=== PATIENT | male | born 1985 | race Hispanic/Latino ===

== ENCOUNTER 2021-11-05 11:44 | Emergency (ER) | payer SELFPAY ==
--- OUTSIDE RECORDS SUMMARY | 2021-11-05 11:47 | XMS REPORT | Continuity of Care Document ---
:1985 Author Organization [facility] t Address [address] [address] Care Team Providers Name Role Phone PCP, DOES NOT HAVE A Primary Care Physician Unavailable Tammy ZAMORA Attending Clinician Unavailable Noah PAC, S Attending Clinician JAN GREENWOOD Attending Clinician Unavailable Otto DOMeera Attending Clinician Lab, Fam Pob I Attending Clinician Unavailable Kierra MOLINA Attending Clinician KIERRA Attending Clinician Unavailable Tammy ZAMORA Admitting Clinician Unavailable Payers Payer Name Policy Type Policy Number Effective Date Expiration Date S [facility] - [id number] 2020 00:00:00 OUT OF STATE Problems Condition Condition Condition Status Onset Resolution Last Treating Co mments Source Name Details Category Date Date Treatment Clinician Date No known No known Disease Unive rs active active ity of problems problems [facility] Allergies, Adverse Reactions, Alerts Allergy Allergy Status Severity Reaction(s) Onset Inactive Treating Comm ents Source Name Type Date Date Clinician NO KNOWN Drug Active Univers ALLERGIE Class ity of S [facility] Social History Social Habit Start Date Stop Date Quantity Comments Source Exposure to Not sure [facility] SARS-CoV-2 (event) Medica l Branch Sex Assigned At [birth year] [facility] 00:00:00 00:00:00 Medical Branch Smoking Status Start Date Stop Date Source Unknown if ever smoked [facility] Medications Ordered Filled Start Stop Current Ordering Indication Dosage Frequency Signature Comments Components Source Medication Medication Date Date Medication? Clinician (SIG) Name Name HYDROcodone 2020-11- No 1{tbl} 1 tablet, Univers -acetaminop 11-09 Oral, ity of hen (NORCO 03:15: 02:09 ONCE, 1 [place] 5) 5-325 mg 00 :00 dose, On Medi terri tablet 1 [place] tablet 09/08/21 at 2115, PATRICIA iohexol 2020-11- No [id number] 100mL 100 mL, U nivers (OMNIPAQUE 11-09 Intravenou it y of 350 02:45: 02:31 s, ONCE, 1 [place] BULK-100 00 :00 dose, On Medical mL) [place] injection 09/08/21 at 100 mL 2045, Routine ondansetron 2020-11 Yes [id number] 4mg Take 1 Univers (ZOFRAN 1-07 tablet by ity of ODT) 4 mg 00:00: mouth [place] disintegrat 00 every 8 Medic al ing tablet (eight) Branch hours as needed for Nausea and Vomiting (N/V). clindamycin 2020-11- Yes [id number] 450mg Take 3 Univers 150 mg 11-0818 capsules ity of capsule 00:00: 05:59 by mouth 3 [place] 00 :00 (three) Medical times Branch daily for 10 days. cyclobenzap Yes [id number] 10mg Take 1 Univers rine 10 mg 5-23 tablet by ity of tablet 00:00: mouth 3 [place] 00 (three) Medical times Branch daily as needed for Muscle Spasms. cyclobenzap Yes [id number] 10mg Take 1 Univers rine 10 mg 5-23 tablet by ity of tablet 00:00: mouth 3 [place] 00 (three) Medical times Branch daily as needed for Muscle Spasms. Vital Signs Vital Name Observation Time Observation Value Comments Source Systolic blood 2021-09-09 00:39:00 137 mm[Hg] Univer sity of pressure [facility] Diastolic blood 2021-09-09 00:39:00 92 mm[Hg] Unive rsity of [facility] Heart rate 2021-09-09 00:39:00 111 /min [facility] [place] [facility] [place] Body temperature 2021-09-09 00:39:00 37.33 [facility] Respiratory rate 2021-09-09 00:39:00 19 /min [facility] Body height 2021-09-09 00:39:00 180.3 cm Universi ty of [facility] Body weight 2021-09-09 00:39:00 77.111 kg Universi ty [facility] BMI 2021-09-09 00:39:00 23.71 kg/m2 Universi ty [facility] Oxygen saturation in 2021-09-09 00:39:00 99 /min [place] of Arterial blood by [facility] Pulse oximetry [place] Systolic blood 2021-03-24 14:02:00 167 mm[Hg] [facility] Diastolic blood 2021-03-24 14:02:00 107 mm[Hg] [facility] Heart rate 2021-03-24 14:02:00 86 /min [facility] Body temperature 2021-03-24 14:02:00 36.06 [facility] Respiratory rate 2021-03-24 14:02:00 18 /min [facility] Body weight 2021-03-24 14:02:00 90.719 kg Universi ty [facility] Oxygen saturation in 2021-03-24 14:02:00 99 /min [facility] Arterial blood by [facility] Pulse oximetry [place] Procedures Procedure Date / Time Performed Performing Clinician [facility] e CT PELVIS W CONTRAST 2021-09-09 02:35:15 Elizabeth Zamora [facility] BASIC METABOLIC PANEL 2021-09-09 02:02:00 Elizabeth Zamora [facility] (NA, K, CL, CO2, Medical Branch GLUCOSE, BUN, CREATININE, CA) CBC WITH DIFF 2021-09-09 02:02:00 Elizabeth Zamora [place] o f [facility] COVID-19 (ID NOW RAPID 2021-09-09 01:13:00 Elizabeth Zamora [facility] TESTING) Medical Branch URINALYSIS 2021-03-24 14:07:00 Brittnee Menjivar Universit y of [facility] NOTICE OF PRIVACY 2021-03-24 14:02:48 Doctor Unassigned, No Univ ersity [facility] PRACTICES Name [facility] Branch CONSENT/REFUSAL FOR 2021-03-24 13:57:47 Doctor Unassigned, No [facility] AND Name [facility] TREATMENT Encounters Start End Encounter Admission Attending Care Care Encounter Source Date/Time Date/Time Type Type Clinicians Facility Department ID 2021-09-01 Emergency [facility] [id number] Univers 20:43:43 ity [facility] 2021-09-08 2021-09-08 [id number] Univers 18:42:00 21:48:00 ELIZABETH ity [facility] 2021-09-08 2021-09-08 [facility] [id number] Univers 18:42:00 21:48:00 Elizabeth S [place] [id number] i ty [facility] [id number] [facility] [id number] [address] 2021-05-17 2021-05-17 Outpatient MARLEN GREENWOOD [id number] 15:30:00 15:30:00 CHEYANNE shay 2021-03-24 2021-03-24 [facility] [id number] Univers 09:04:00 09:44:00 [id number] [id number] [address] 2020-05-17 2020-05-17 Outpatient R [facility] [id number] Univers 07:20:00 07:20:00 [id number] ity [facility] 2020-05-07 2020-05-07 Laboratory Lab, Adc Fam Pob [facility] [id number] Univers 11:15:29 11:27:08 Only KODA [id number] ity [facility] [id number] [place] Professio [id number] Fl dical nal [address] 2020-05-07 2020-05-07 Outpatient Eber LOZADA [facility] [id number] Univers 11:20:00 11:20:00 RUPALI feliz [facility] Results Test Description Test Time Test Comments Results Result Comments Source BASIC METABOLIC PANEL (NA, K, CL, CO2, GLUCOSE, BUN, 2021-09 02:44:46 CREATININE, CA) Test Item Value Reference Range Interpretation Comme nts NA (test code = 9692783018) 134 mmol/L 135-145 L K (test code = 5892237656) 4.1 mmol/L 3.5-5.0 CL (test code = 8968430934) 99 mmol/L 98-108 CO2 TOTAL (test code = 8654281569) 34 mmol/L 23-31 H AGAP (test code = 8408448027) 2-16 L BUN (test code = 7947310415) 12 mg/dL 7-23 GLUCOSE (test code = 6919988317) 128 mg/dL 70-110 H CREATININE (test code = 0.64 mg/dL 0.60-1.25 2540013063) CALCIUM (test code = 9618593336) 8.9 mg/dL 8.6-10.6 eGFR (test code = 9032940791) mL/min/1.73m2 JUN (test code = JUN) Association of Glomerular Filtration Rate (GFR) and Staging of Kidney Disease* + +-------- + ------+| GFR (mL/min/1.73 m2) ?| With Kidney Damage ?| ?Without Kidney Damage+ +-- + +| ?>90 ?| ?Stage one ?| ? Normal ?+ +------- + -------+| ?60-89 ?| ?Stage two ?| ? Decreased GFR ? + +-------- + ------+| ?30-59 ?| ?Stage three ?| ? Stage three ? + +-------- + ------+| ?15-29 ?| ?Stage four ? | ? Stage four ?+ +------- + -------+| ?<15 (or dialysis) ? ?| ?Stage five ? | ? Stage five ?+ +------- + -------+ *Each stage assumes the associated GFR level has been in effect for at least three months. ?Stages 1 to 5, with or without kidney disease, indicate chronic kidney disease. Notes: Determination of stages one and two (with eGFR >59mL/min/1.73 m2) requires estimation of kidney damage for at least three months as defined by structural or functional abnormalities of the kidney, manifested by either:Pathological abnormalities or Markers of kidney damage (including abnormalities in the composition of the blood or urine or abnormalities in imaging tests). Lab Interpretation (test code = Abnormal 20884-7) [facility] WITH [id number] 02:09:44 Test Item Value Reference Range Interpretation Comments WBC (test code = See_Comment [Automated 8890-2) message] The sy stem which generated this result transmitted reference range : 4.20 - 10.70 10*3/?L. The reference range was not used to interpret this result as normal/abnormal . RBC (test code = See_Comment [Automated 729-8) message] The sy stem which generated this result transmitted reference range : 4.26 - 5.52 10*6/?L. The reference range was not used to interpret this result as normal/abnormal . HGB (test code = 13.1 g/dL 12.2-16.4 718-7) HCT (test code = 40.8 % 38.4-49.3 4544-3) MCV (test code = 88.9 fL 81.7-95.6 787-2) MCH (test code = 28.5 pg 26.1-32.7 785-6) MCHC (test code = 32.1 g/dL 31.2-35.0 786-4) RDW-SD (test code = 43.5 fL 38.5-51.6 37239-0) RDW-CV (test code = 13.3 % 12.1-15.4 788-0) PLT (test code = See_Comment [Automated 777-3) message] The sy stem which generated this result transmitted reference range : 150 - 328 10*3/ ?L. The reference r lucero was not used to interpret this result as normal/abnormal . MPV (test code = 9.6 fL 9.8-13.0 L 27306-7) NRBC/100 WBC (test See_Comment [Automat ed code = 7918820856) message] The system which generated this result transmitted reference range : 0.0 - 10.0 /100 WBCs. The refer ence range was not u sed to interpret th is result as normal/abnormal . NRBC x10^3 (test code <0.01 See_Comment [Auto mated = 2217366671) message] The s ystem which generated this result transmitted reference range : 10*3/?L. The reference range was not used to interpret this result as normal/abnormal . GRAN MAT (NEUT) % 70.6 % (test code = 770-8) IMM GRAN % (test code 0.50 % = 0901381616) LYMPH % (test code = 14.6 % 736-9) MONO % (test code = 12.3 % 5905-5) EOS % (test code = 1.7 % 713-8) BASO % (test code = 0.3 % 706-2) GRAN MAT x10^3(ANC) 7.50 10*3/uL 1.99-6.95 H (test code = 6513308800) IMM GRAN x10^3 (test 0.05 10*3/uL 0.00-0.06 code = 3657333223) LYMPH x10^3 (test code 1.55 10*3/uL 1.09-3.23 = 731-0) MONO x10^3 (test code 1.31 10*3/uL 0.36-1.02 H = 742-7) EOS x10^3 (test code = 0.18 10*3/uL 0.06-0.53 711-2) BASO x10^3 (test code 0.03 10*3/uL 0.01-0.09 = 704-7) Lab Interpretation Abnormal (test code = 95969-1) [place] [facility] Test Item Value Reference Range Interpretation Comments APPEARANCE (test code = Clear Clear 5649583491) COLOR (test code = Yellow Yellow 5314541514) PH (test code = 4.8-8.0 5335808202) SP GRAVITY (test code = 1.003-1.030 3199844719) GLU U QUAL (test code = Normal Normal 3159859226) BLOOD (test code = Negative Negative 7878368120) KETONES (test code = Negative Negative 9140584478) PROTEIN (test code = Negative Negative 2887-8) UROBILIN (test code = Normal Normal 1868078269) BILIRUBIN (test code = Negative Negative 8555829897) NITRITE (test code = Negative Negative 9556498044) LEUK CONSUELO (test code = 25/uL Negative A 2367330084) RBC/HPF (test code = See_Comment [Autom ated message] 3430446256) The system [employer] generated this result transmitted ref erence range: 0 - 3 HP F. The reference range was not used to int erpret this result as normal/abnormal . WBC/HPF (test code = See_Comment [Autom ated message] 5375298401) The system [employer] generated this result transmitted ref erence range: 0 - 5 HP F. The reference range was not used to int erpret this result as normal/abnormal . BACTERIA (test code = Negative Negative 4992135484) SQ EPITH (test code = <1 HPF 8892915977) Lab Interpretation (test Abnormal code = 15902-3) [facility]"
[2021-11-05] MEDS ORDERED: NA CHLORIDE 0.9% 1,000 ML ONE ×2 (12:30→13:08)
[2021-11-05 12:42] LABS: Absolute Lymphocytes (CBC) 1.1 K/uL (0.7-4.9); Hematocrit 44.2 % (39.6-49.0); Lymphocytes % 15.5 % (15.3-44.8); MPV 7.9 fL (7.6-11.3); RBC Red Blood Cell Count 5.11 M/uL (4.33-5.43)
[2021-11-05 12:44] LABS: Protime INR 1.11
[2021-11-05 12:59] LABS: ALT/SGPT 57 U/L (12-78); AST/SGOT 41 U/L (15-37); Albumin 3.3 g/dL (3.4-5.0); Alkaline Phosphatase 81 U/L (45-117); BUN Blood Urea Nitrogen 10 mg/dL (7-18); Bicarbonate 27 mmol/L (21-32); Bilirubin Direct 0.3 mg/dL (0-0.2); Glucose Level 109 mg/dL (74-106); Potassium 3.9 mmol/L (3.5-5.1); Protein, Total 6.9 g/dL (6.4-8.2); Sodium Level 138 mmol/L (136-145)
[2021-11-05] MEDS ORDERED: ETOMIDATE 20 MG/10 ML VIAL IV ONE (13:07)
[2021-11-05] MEDS ORDERED: SUCCINYLCHOLINE 20 MG/ML (10 ML) IV ONE (13:08)
[2021-11-05] MEDS ORDERED: propofoL 1,000 MG/100 ML VIAL IV ONE ×2 (13:53→17:53)
[2021-11-05 14:11] LABS: Barbiturates NEGATIVE (NEGATIVE); Benzodiazepines NEGATIVE (NEGATIVE); Cocaine POSITIVE (NEGATIVE); METHAMPHETAM NEGATIVE (NEGATIVE); Methadone NEGATIVE (NEGATIVE); Opiates NEGATIVE (NEGATIVE); Phencyclidine NEGATIVE (NEGATIVE); THC Cannibis NEGATIVE (NEGATIVE)
--- NOTE | 2021-11-05 14:25 | RAD REPORT ---
EXAM DESCRIPTION: RAD - Chest Single View - 11/05/2021 2:17 pm CLINICAL HISTORY: postintubation COMPARISON: Chest Pa And Lat (2 Views) dated 11/23/2018 FINDINGS: Lines: Endotracheal tube at the aortic arch. Lungs: Mild opacities medially within the lung bases. Pleural: No significant pleural effusions or pneumothorax. Cardiac: The heart size is within normal limits. Bones: No acute fractures. Other: Enteric tube overlies the stomach. IMPRESSION: Basilar opacities, right greater than left could reflect aspiration, atelectasis, and/or pneumonia.
[2021-11-05] MEDS ORDERED: HYDROMORPHONE HCL 2 MG/ML inj ONE (15:12)
[2021-11-05] MEDS ORDERED: MIDAZOLAM HCL 2 MG/2 ML INJ ONE (15:12)
[2021-11-05] MEDS ORDERED: PIPERACIL/TAZO 3.375 GM VIAL IV ONE (15:13)
[2021-11-05] MEDS ORDERED: NA CHLORIDE 0.9% 100 ML ONE (15:15)
[2021-11-05 15:18] LABS: Blood Gas Oxyhemoglobin 97.7 % (94-97); Blood O2 Saturation 99.6 % (92-98.5)
--- NOTE | 2021-11-05 15:29 | EDPHYS ---
Physician Documentation [facility] Name: You Starks Age: 36 yrs Sex: Male : 1985 Arrival Date: 11/05/2021 Time: 11:45 Bed 26 Private MD: ED Physician Hugo Belcher HPI: 11/05 11:49 This 36 yrs old Male presents to ER via Unassigned with complaints of Overdose.rn 11:49 The patient presents to the emergency department after a known overdose, that was rn intentional. Context: Method: the patient has a confirmed or suspected ingestion, Time: 40 minute(s) ago, the OD/poisoning occurred at at home, and was witnessed by a significant other. Severity of symptoms: At their worst the symptoms were moderate in the emergency department the symptoms are unchanged. Unable to obtain HPI due to altered mental status. It is unknown whether or not the patient has had similar symptoms in the past. It is unknown whether or not the patient has recently seen a physician. Per EMS, patient took unknown quantity of several medications. EMS states took Xanax, meloxicam, Ambien, propranolol, and one other medication. States took approximately 30 minutes prior to their arrival now about 40 or 45 minutes ago. Has never attempted suicide before. EMS reports saw a rash so added 25 mg of Benadryl IV. Patient moving all 4 extremities but no purposeful speech.. Historical: - Allergies: 17:17 No Known Allergies; ww - PMHx: 17:17 Depressive disorder; Hypertensive disorder; ww - PSHx: 17:17 gastric sleeve; ww - Immunization history:: Client reports having NOT received the Covid vaccine. - Social history:: Smoking status: Reported history of juuling and/or vaping. Patient uses street drugs, cocaine. - Code Status:: Full code. - History obtained from: EMS. - Unable to obtain history due to: altered mental status. ROS: 11:49 Unable to obtain ROS due to altered mental status. rn Exam: 11:49 Constitutional: Well-developed male, is somnolent, but moving all 4 extremities and rn responding to tactile stimulation. Head/Face: Normocephalic, atraumatic. Eyes: Pupils 2 mm, equal bilateral, no trauma, no nystagmus ENT: Dry mucous membranes, no stridor Cardiovascular: Tachycardic, regular. No pulse deficits Respiratory: No increased work of breathing, no retractions or nasal flaring. Abdomen/GI: Soft, nontender, no masses Skin: Warm, dry, no cyanosis MS/ Extremity: Pulses equal, no cyanosis. Neurovascular intact. Full, normal range of motion. Equal circumference. Neuro: Somnolent, moves all 4 extremities, localizes painful stimuli. Vital Signs: 11:46 BP 161 / 116; Pulse 70; Resp 15; Temp 98.9(A); Pulse Ox 100% on R/A; Height 6 ft. 0 in. ww (182.88 cm); Pain 0/10; 12:15 BP 150 / 133; Pulse 91; Resp 16; Pulse Ox 99% on 2 lpm NC; ww 12:45 BP 150 / 97; Pulse 80; Resp 18; Pulse Ox 95% on 2 lpm NC; ww 13:15 BP 160 / 123; Pulse 100; Resp 17; Pulse Ox 100% ; ww 13:45 BP 166 / 133; Pulse 82; Resp 18; Pulse Ox 100% on ETT vent; ww 14:02 Weight 80 kg; ww 14:15 BP 170 / 131; Pulse 70; Resp 16; Pulse Ox 100% on ETT vent; ww 14:45 BP 141 / 104; Pulse 75; Resp 16; Pulse Ox 100% on ETT vent; ww 15:26 BP 141 / 100; Pulse 92; Resp 16; Temp 97.6(TE); Pulse Ox 98% on ETT vent; dh3 16:30 BP 128 / 89; Pulse 72; Resp 16; Pulse Ox 100% on ETT vent; ww 17:35 BP 130 / 95; Pulse 71; Resp 16; Pulse Ox 100% on ETT vent; ww 20:22 BP 138 / 101; Pulse 86; Resp 16; Temp 98.3; Pulse Ox 100% 5 lpm ; Pain 0/10; sv1 11:46 Body Mass Index 23.92 (80.00 kg, 182.88 cm) ww Jose Coma Score: 11:49 Eye Response: to pain(2). Verbal Response: none(1). Motor Response: localizes pain(5). rn Total: 8. 12:45 Eye Response: none(1). Verbal Response: none(1). Motor Response: none(1). Total: 3. ww Procedures: 13:16 Intubation: Ventilated with 100% NRB prior to procedure. 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 Intubated orally using # 4 Alberto blade with 7.5 mm ETT. was successful on first attempt. Cricoid pressure applied during procedure. Tube secured with ETT underwood at right side of mouth measured 24 cm at teeth. Placement verified by CO2 detector with (+) color change, auscultating bilateral breath sounds, O2 saturation after procedure was 100 %. Patient tolerated well. MDM: 11:45 Patient medically screened. rn 12:03 ED course: Per report by EMS, there was a combination of pieces of pills or tablets as rn well as crushed drugs when picked up.. 13:15 ED course: Patient became hypoxic and more sedated, was initially GCS of 8 and was rn giving him a chance but given increased sedation and worsening of GCS patient intubated for airway protection.. 14:48 Differential diagnosis: over medication. 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 Counseling: I had a detailed discussion with the patient and/or guardian regarding: the historical points, exam findings, and any diagnostic results supporting the discharge/admit diagnosis, lab results, radiology results, the need for further work-up and treatment in the hospital. Response to treatment: the patient's symptoms have mildly improved after treatment, and as a result, I will admit patient. Admission orders: after a detailed discussion of the patient's condition and case, the admit orders are written by me. ED course: . 14:49 ED course: Pt admitted to Dr. Hinojosa. ED course: Dr. Hinojosa evaluated patient, rn recommends transfer due to lack of ICU beds at this facility. Initiated transfer. 16:10 ED course: EMS tried narcan without change in mental status.. rn 16:43 ED course: Pt accepted for transfer to [facility] 12/04 [facility] facility at rn capacity and per request by Dr. Hinojosa. 11/05 11:46 Order name: Acetaminophen rn 11/05 11:46 Order name: Basic Metabolic Panel rn 11/05 11:46 Order name: CBC with Diff rn 11/05 11:46 Order name: ETOH Level rn 11/05 11:46 Order name: Hepatic Function; Complete Time: 13:17 rn 11/05 11:46 Order name: PT-INR; Complete Time: 13:17 rn 11/05 11:46 Order name: Ptt, Activated; Complete Time: 13:17 rn 11/05 11:46 Order name: Salicylate; Complete Time: 14:00 rn 11/05 11:46 Order name: Urine Drug Screen; Complete Time: 14:25 rn 11/05 11:46 Order name: Acetaminophen Level; Complete Time: 13:17 EDMS 11/05 11:46 Order name: Basic Metabolic Panel; Complete Time: 13:17 EDMS 11/05 11:46 Order name: CBC with Automated Diff; Complete Time: 13:17 EDMS 11/05 11:46 Order name: Alcohol Serum/Plasma; Complete Time: 13:17 EDUT 11/05 12:13 Order name: CK; Complete Time: 13:17 rn 11/05 11:46 Order name: EKG; Complete Time: 11:46 rn 11/05 11:46 Order name: EKG - Nurse/Tech; Complete Time: 12:31 rn 11/05 11:46 Order name: IV Saline Lock; Complete Time: 12:31 rn 11/05 11:46 Order name: Labs collected and sent; Complete Time: 12:31 rn 11/05 11:46 Order name: Suicide Precautions; Complete Time: 12:32 rn 11/05 11:46 Order name: Suicide Screening ([place]); Complete Time: 17:54 rn 11/05 11:46 Order name: Urine Dipstick-Ancillary (obtain specimen); Complete Time: 13:43 rn 11/05 13:25 Order name: XRAY Chest (1 view); Complete Time: 14:28 rn 11/05 14:44 Order name: SARS-COV-2 RT PCR (Document "Date of Onset" if Symptomatic); Complete Time: rn 16:10 11/05 15:15 Order name: ABG Arterial Blood Gas; Complete Time: 15:43 EDMS 11/05 11:46 Order name: Glucose Level; Complete Time: 16:41 rn 11/05 11:46 Order name: O2 Sat Monitoring; Complete Time: 12:20 rn 11/05 11:46 Order name: Cardiac monitoring; Complete Time: 12:20 rn 11/05 12:03 Order name: Restraint:Non-Violent; Complete Time: 12:30 rn Administered Medications: 12:31 Drug: NS 0.9% 1000 ml Route: IV; Rate: 1000 ml; Site: right forearm; ww 14:02 Drug: Propofol 5 mcg/kg/min Route: IV; Rate: calculated rate; Site: right forearm; ww 15:30 Drug: Dilaudid (HYDROmorphone) 1 mg Route: IVP; Site: left antecubital; ww 15:36 Drug: Versed (midazolam) 2 mg Route: IVP; Site: left antecubital; ww 15:37 Drug: Zosyn (piperacillin-tazobactam) 3.375 grams Route: IVPB; Infused Over: 60 mins; ww Site: left antecubital; Disposition Summary: 11/05/21 16:44 Transfer Ordered Transfer Location: [facility] rn Reason: Higher level of care rn Condition: Fair(11/05/21 16:44) rn Problem: new(11/05/21 16:44) rn Symptoms: have improved(11/05/21 16:44) rn Accepting Physician: Dr. Galvan(11/05/21 22:22) sv1 Diagnosis - Acute respiratory failure with hypoxia(11/05/21 16:44) rn - Suicide attempt(11/05/21 16:44) rn - Adverse effect of other antiepileptic and sedative-hypnotic drugs(11/05/21 16:44) rn Forms: - Medication Reconciliation Form rn - SBAR form learning support aide time excluding procedures: 15:27 Critical care time: Bedside Care: 30 minutes, Consultation: 5 minutes, Family rn Intervention: 5 minutes. Total time: 40 minutes Signatures: Dispatcher [employer] [facility] Hugo Belcher MD MD rn Villicano, Steven, RN RN sv1 Cristina Rivera RN RN ww Corrections: (The following items were deleted from the chart) 14:16 13:32 Chest Single View+RAD.RAD.BRZ ordered. [facility] EDUT 16:43 15:28 Inpatient Admission rn rn 16:43 15:28 Kyle Hinojosa rn rn 16:43 15:28 Intensive Care Unit rn rn 16:43 15:28 Fair rn rn 16:43 15:28 new rn rn 16:43 15:28 are unchanged rn rn 16:43 15:28 Standard rn rn 16:43 15:28 rn rn 16:43 15:28 Acute respiratory failure with hypoxia rn rn 16:43 15:28 Adverse effect of other antiepileptic and sedative-hypnotic drugs rn rn 16:43 15:28 Suicide attempt rn rn 22: 16:44 Dr. Galvan rn sv1
--- NOTE | 2021-11-05 15:29 | ER ---
Nurse's Notes [facility] Name: You Starks Age: 36 yrs Sex: Male : 1985 Arrival Date: 11/05/2021 Time: 11:45 Bed 26 Private MD: Diagnosis: Acute respiratory failure with hypoxia;Suicide attempt;Adverse effect of other antiepileptic and sedative-hypnotic drugs Presentation: 11/05 11:46 Chief complaint: EMS states: EMS was contacted for patient taking xanax, ambien, ww flexeril, propanolol, meloxicam, zolpidem, cyclobenzaprine, olanzapine and venlafaxine. Patient is unresponsive. [place] [employer] present. Coronavirus screen: At this time, unable to obtain information related to travel outside the [place] Ebola Screen: No symptoms or risks identified at this time. Initial Sepsis Screen: Does the patient meet any 2 criteria? No. Patient's initial sepsis screen is negative. Does the patient have a suspected source of infection? No. Patient's initial sepsis screen is negative. Risk Assessment: Do you want to hurt yourself or someone else? Patient reports desire/thoughts of hurting themselves or someone else. Provider notified. Onset of symptoms was November 05, 2021. 11:46 Method Of Arrival: EMS: [facility] 11:46 Acuity: SHAMEKA 1 ww Triage Assessment: 11:45 General: Appears distressed, Behavior is uncooperative, unresponsive. Pain: Denies pain.ww 11:45 EENT: No deficits noted. ww 11:45 Neuro: Level of Consciousness is unresponsive, Oriented to none. Cardiovascular: ww Capillary refill < 3 seconds Patient's skin is warm and dry. Rhythm is regular. Respiratory: Airway is patent Respiratory effort is unlabored. GI: No deficits noted. : No deficits noted. Derm: No deficits noted. Skin is intact, Skin is pink, warm \\T\\ dry. Historical: - Allergies: 17:17 No Known Allergies; ww - PMHx: 17:17 Depressive disorder; Hypertensive disorder; ww - PSHx: 17:17 gastric sleeve; ww - Immunization history:: Client reports having NOT received the Covid vaccine. - Social history:: Smoking status: Reported history of juuling and/or vaping. Patient uses street drugs, cocaine. - Code Status:: Full code. - History obtained from: EMS. - Unable to obtain history due to: altered mental status. Screenin:38 Abuse screen: Denies threats or abuse. Denies injuries from another. Nutritional ww screening: No deficits noted. Tuberculosis screening: No symptoms or risk factors identified. Fall Risk None identified. Assessment: 12:15 Reassessment: No changes from previously documented assessment. Neuro: Level of ww Consciousness is unresponsive. Respiratory: snoring respirations. 12:30 Reassessment: No changes from previously documented assessment. MD aware of patients ww vitals and neuro status. . Cardiovascular: Capillary refill < 3 seconds. 13:00 Reassessment: No changes from previously documented assessment. MD aware of vitals and ww neuro status. Will plan to intubate . Cardiovascular: Capillary refill < 3 seconds. 13:45 Reassessment: Patient and/or family updated on plan of care and expected duration. Pain ww level reassessed. Sister at bedside. intubated see intubation note. 14:30 Reassessment: No changes from previously documented assessment. Patient and/or family ww updated on plan of care and expected duration. Pain level reassessed. restraints removed. skin, pink warm and dry with no breakdown. cap refill less than 3 . 14:35 General: Spoke to Balbina in the [place] [facility] control regarding case. Case # [id number]. ww 15:30 Reassessment: No changes from previously documented assessment. patient remains on the ww vent, no distress noted. sister at bedside. patient becoming more agitated and pulling on lines, MD notified and restraints placed. skin intact, warm and dry. . 16:30 Reassessment: No changes from previously documented assessment. Patient and/or family ww updated on plan of care and expected duration. Pain level reassessed. 17:30 Reassessment: No changes from previously documented assessment. Patient and/or family ww updated on plan of care and expected duration. Pain level reassessed. 18:06 Reassessment: No changes from previously documented assessment. . ww 18:36 General: Spoke with Balbina in the [place] [facility] control center regarding patient. ww 20:24 Reassessment: Sedated. Remains on the vent. No distress noted. Lung amos are clear. sv1 The patient is voiding via bean. . 22:14 Reassessment: Transportation here to transport the patient. Report was given.. sv1 Vital Signs: 11:46 BP 161 / 116; Pulse 70; Resp 15; Temp 98.9(A); Pulse Ox 100% on R/A; Height 6 ft. 0 in. ww (182.88 cm); Pain 0/10; 12:15 BP 150 / 133; Pulse 91; Resp 16; Pulse Ox 99% on 2 lpm NC; ww 12:45 BP 150 / 97; Pulse 80; Resp 18; Pulse Ox 95% on 2 lpm NC; ww 13:15 BP 160 / 123; Pulse 100; Resp 17; Pulse Ox 100% ; ww 13:45 BP 166 / 133; Pulse 82; Resp 18; Pulse Ox 100% on ETT vent; ww 14:02 Weight 80 kg; ww 14:15 BP 170 / 131; Pulse 70; Resp 16; Pulse Ox 100% on ETT vent; ww 14:45 BP 141 / 104; Pulse 75; Resp 16; Pulse Ox 100% on ETT vent; ww 15:26 BP 141 / 100; Pulse 92; Resp 16; Temp 97.6(TE); Pulse Ox 98% on ETT vent; dh3 16:30 BP 128 / 89; Pulse 72; Resp 16; Pulse Ox 100% on ETT vent; ww 17:35 BP 130 / 95; Pulse 71; Resp 16; Pulse Ox 100% on ETT vent; ww 20:22 BP 138 / 101; Pulse 86; Resp 16; Temp 98.3; Pulse Ox 100% 5 lpm ; Pain 0/10; sv1 11:46 Body Mass Index 23.92 (80.00 kg, 182.88 cm) [place] Coma Score: 11:49 Eye Response: to pain(2). Verbal Response: none(1). Motor Response: localizes pain(5). rn Total: 8. 12:45 Eye Response: none(1). Verbal Response: none(1). Motor Response: none(1). Total: 3. ED Course: 11:45 Patient arrived in ED. rn 11:45 Hugo Belcher MD is Attending Physician. rn 11:45 Initial lab(s) drawn, by al, sent to lab. EKG done, by ED staff, COVID swab sent to lab. Inserted saline lock: 18 gauge in left forearm, using aseptic technique. Blood collected. 11:45 Arm band placed on left wrist. EKG completed in triage. Results shown to MD. EKG done ww per protocol. Performed by ED Staff. Shown to ED physician. 11:45 Placed in gown. Bed in low position. Call light in reach. Side rails up X2. Cardiac ww monitor on. Pulse ox on. NIBP on. Patient is placed in psych hold. 12:20 Cristina Rivera, RN is Primary Nurse. ww 12:31 Acetaminophen Sent. ww 12:31 Basic Metabolic Panel Sent. ww 12:31 CBC with Diff Sent. ww 12:31 ETOH Level Sent. ww 13:15 Assisted provider with intubation using 7.5 mm ETT via oral route. ET tube secured at ww 24cm at the teeth. Set up intubation tray. Intubated by Hugo Belcher MD Placement verified by CO2 detector w/ + color change, auscultating bilateral breath sounds, End-tidal CO2 montioring CXR, Patient tolerated well. etomidate 20mg and 120mg of succ middleware administrator. 13:45 Inserted saline lock: 18 gauge in right antecubital area, using aseptic technique. ww 13:45 Bean cath inserted, using sterile technique, 16 Fr., by al, balloon inflated, to gravity drainage, urine specimen collected. returned jenny urine. Patient tolerated well. NGT: inserted 16 Fr. other oral verified placement of air over stomach, verified return of gastric contents, Placement verified by X-ray. 14:17 XRAY Chest (1 view) In Process Unspecified. EDMS 15:27 Kyle Hinojosa DO is Hospitalizing Provider. rn 15:28 initiated transfer with [facility] \\[id number] with [facility] 16:00 reported negative COVID result to [facility] 17:16 Triage completed. ww 17:30 Report given to attempted report to [facility] informed the staff is working a code and ww unable to take report and to call back in 30 minutes. 17:55 Report given to attempted report and spoke to Kyle charge nurse who states " we don't ww have any beds and I don't know who that attending is. You can call transfer center". Transfer center notified and attempted to call the floor and was disconnected each time and contacted her administrators. 18:46 Report given to Transfer center returned to give update on patients room number to [id number] ww and transferred me to call report. Nurse answered phone and stated "we are unable to take report we are in a crisis per our attending". Spoke with Casie Wiggins in transfer center and notified. 18:47 Sister is primary contact, Yakelin Becerril [phone]. ww 19:42 Report given to attempted to call report and no one answered at transfer center. ww 20:22 IV is patent. sv1 22:21 Changed dressing on antecubital sv1 Administered Medications: 12:31 Drug: NS 0.9% 1000 ml Route: IV; Rate: 1000 ml; Site: right forearm; ww 14:02 Drug: Propofol 5 mcg/kg/min Route: IV; Rate: calculated rate; Site: right forearm; ww 15:30 Drug: Dilaudid (HYDROmorphone) 1 mg Route: IVP; Site: left antecubital; ww 15:36 Drug: Versed (midazolam) 2 mg Route: IVP; Site: left antecubital; ww 15:37 Drug: Zosyn (piperacillin-tazobactam) 3.375 grams Route: IVPB; Infused Over: 60 mins; ww Site: left antecubital; Outcome: 15:28 Decision to Hospitalize by Provider. rn 16:44 ER care complete, transfer ordered by . rn 22:19 Transferred by ground EMS to [facility], Transfer form completed. sv1 22:19 Condition: stable 22:19 Instructed on the need for transfer. 22:22 Patient left the ED. sv1 Signatures: Dispatcher [employer] EDMS Hugo Beclher MD MD rn Herrera, Deanna [facility] Yong Garibay RN RN sv1 Cristina Rivera RN RN ww Corrections: (The following items were deleted from the chart) 17:22 11:45 EENT: No deficits noted. ww ww 17:38 13:15 BP 166 / 133; ww ww 17:59 13:45 Reassessment: Patient and/or family updated on plan of care and expected ww duration. Pain level reassessed. Sister at bedside. intubated see intubation note. ww
[2021-11-05 23:43] VITALS: O2SAT 100
[2021-11-05 23:47] VITALS: BP 138/101; TEMP 98.3
--- NOTE | 2021-11-06 11:26 | EKG ---
Test Date: 2021-11-05 Test Time: 12:01:52 Medical Research Associate: CR Velázquez MEASUREMENT RESULTS: Intervals: Rate: 87 PA: 124 QRSD: 94 QT: 352 QTc: 423 [place]: P: 31 PA: 124 QRS: 67 T: 41 INTERPRETIVE STATEMENTS: Normal sinus rhythm Incomplete right bundle branch block Septal infarct, age undetermined Abnormal ECG Compared to ECG 08/02/2007 16:50:05 Incomplete right bundle-branch block now present Myocardial infarct finding now present Sinus arrhythmia no longer present Electronically Signed On 11-06-21 11:23:35 INCIDENT HANDLER by De Borjas
[2021-11-12 13:22] LABS: Urine Blood Negative (Negative); Urine Glucose Negative (Negative); Urine Protein Negative (Negative); Urine Specific Gravity 1.015 (1.005-1.030)
== END 2021-11-05 22:22 | disposition short-term general hospital (02) ==
LOC: ER 11:44
PROC: 0BH17EZ Insertion of Endotracheal Airway into Trachea, Via Natural or Artificial Opening (ICD-10-PCS; principal; 2021-11-05)
PROC: 5A1935Z Respiratory Ventilation, Less than 24 Consecutive Hours (ICD-10-PCS; 2021-11-05)
DX: J96.01 Acute respiratory failure with hypoxia (principal); T50.992A Poisoning by other drugs, medicaments and biological substances, intentional self-harm, initial encounter; F32.A Depression, unspecified; I10 Essential (primary) hypertension; Z20.822 Contact with and (suspected) exposure to COVID-19
CPT/HCPCS: 31500; 36415; 51702; 71045; 80048; 80076; 80307; 80320; 80329; 81003; 82550; 82805; 85025; 85610; 85730; 93005; 94002; 99291; 99292; J0330; J1170; J2250; J2543; J2704; J7030; U0003

== ENCOUNTER 2024-12-31 15:00 | Emergency (ER) | payer SELFPAY ==
[2024-12-31] MEDS ORDERED: LIDOCAINE 1% 20 ML MDV ONE (15:04)
[2024-12-31] MEDS ORDERED: TDAP (DIPHTH,PERTUSS(ACELL),TET VAC) 0.5 ML VIAL IMVAC ONE (15:12)
--- NOTE | 2024-12-31 15:52 | EDPHYS ---
Physician Documentation [facility] [place], [place] Name: You Starks Age: 39 yrs Sex: Male : 1985 Arrival Date: 12/31/2024 Time: 15:00 Bed 4 Private MD: ED Physician Trip Pichardo HPI: 12/31 18:05 This 39 yrs old Male presents to ER via Ambulatory with complaints of Finger dr5 Injury. 18:05 This 39 yrs old Male presents to ER via Ambulatory with complaints of Finger dr5 Injury. 18:05 Trauma demographics: Location of Injury: The injury occurred at home, Date: December 312024. Patient is a 39-year-old male with history of depression and hypertension coming in with laceration to the left fourth digit after using a cake washer. Patient is unknown last tetanus. Historical: - Allergies: 15:10 No Known Allergies; ss - PMHx: 15:10 depressive disorder; Hypertensive disorder; ss - PSHx: 15:10 gastric sleeve; ss - Immunization history:: Last tetanus immunization: unknown. - Infectious Disease History:: Denies. - Social history:: Smoking status: unknown. ROS: 18:05 Constitutional: as per hpi dr5 Exam: 18:05 Constitutional: This is a well developed, well nourished patient who is awake, alert, dr5 and in no acute distress. Head/Face: Normocephalic, atraumatic. Eyes: Pupils equal round and reactive to light, extra-ocular motions intact. Lids and lashes normal. Conjunctiva and sclera are non-icteric and not injected. Cornea within normal limits. Periorbital areas with no swelling, redness, or edema. Chest/axilla: Normal chest wall appearance and motion. Nontender with no deformity. No lesions are appreciated. Cardiovascular: Regular rate and rhythm with a normal S1 and S2. Normal PMI, no JVD. No pulse deficits. Respiratory: Lungs have equal breath sounds bilaterally, clear to auscultation. No rales, rhonchi or wheezes noted. No increased work of breathing, no retractions or nasal flaring. Abdomen/GI: Soft, non-tender, non-distended 18:05 Musculoskeletal/extremity: Extremities: all appear grossly normal, with no appreciated pain with palpation, ROM: no acute changes, full active range of motion, Circulation is intact in all extremities. Sensation intact. 18:05 Skin: injury, laceration(s), the wound is approximately 3 cm(s), with a depth of 1 cm(s), of the dorsal aspect of proximal phalanx of left ring finger, Vital Signs: 15:06 BP 177 / 114; Pulse 90; Resp 16; Temp 98.3(TE); Pulse Ox 98% on R/A; Weight 82.55 kg; ss Height 5 ft. 11 in. ; Pain 8/10; 15:20 BP 159 / 108; Pulse 89; Resp 16; Pulse Ox 96% on R/A; iw 15:06 Body Mass Index 25.38 (82.55 kg, 180.34 cm) ss 15:06 Pain Scale: Adult ss Laceration: 18:05 Wound Repair of 3cm ( 1.2in ) subcutaneous laceration to dorsal aspect of proximal dr5 phalanx of left ring finger. Irregularly shaped.. Skin/tissue flap noted.. Distal neuro/vascular/tendon intact. Anesthesia: Digital block administered with 4 mls of 1% lidocaine. Wound prep: Moderate cleansing, Copious irrigation. Skin closed with 7 4-0 Prolene using simple sutures and sterile technique. Dressed with non-adherent dressing. Patient tolerated well. MDM: 15:06 Medical Screening Exam initiated dr5 18:05 Differential diagnosis: Contusion, laceration, abrasion. Data reviewed: vital signs, dr5 nurses notes. I considered the following discharge prescriptions or medication management in the emergency department Medications were administered in the Emergency Department. See MAR. Care significantly affected by the following chronic conditions: Depression, hypertension. Care significantly affected by the following Social Determinants of Health: Poor access to healthcare and/or lack of insurance, Poor access to transportation, Problems related to employment. Counseling: I had a detailed discussion with the patient and/or guardian regarding the historical points, exam findings, and any diagnostic results supporting the discharge/admit diagnosis, the presence of at least one elevated blood pressure reading (>120/80) during this emergency department visit, the need for outpatient follow up, for definitive care, a family practitioner, to return to the emergency department if symptoms worsen or persist or if there are any questions or concerns that arise at home. Response to treatment: the patient's symptoms have resolved after treatment. ED course: 7 sutures placed to approximate wound. Tetanus was updated. Recommended returning in 7 to 10 days for suture removal. Keflex prescribed to prevent infection. All questions answered. Patient was placed in finger splint to immobilize finger and promote healing.. 12/31 15:09 Order name: Dressing - Wound; Complete Time: 19:03 dr5 12/31 15:09 Order name: Prolene, Sutures: 4-0; Complete Time: 15:19 dr5 12/31 15:09 Order name: Setup Suture Tray; Complete Time: 19: dr5 12/31 15:49 Order name: Finger Splint; Complete Time: 16:19 dr5 Administered Medications: 15:18 Drug: Boostrix Tdap IM 0.5 ml IM once; as a single dose Route: IM; Site: right deltoid; iw 15:25 Follow up: Response: No adverse reaction iw 15:50 Drug: Lidocaine Infiltration (1 %) 20 ml 20 ml Infiltration once; to bedside Volume: 20 iw ml; Route: Infiltration; Disposition Summary: 12/31/24 15:51 Discharge Ordered Notes: Location: Home dr5 Condition: Stable dr5 Diagnosis - Laceration without foreign body of left ring finger without damage to nail dr5 Followup: dr5 - With: Emergency Department - When: As needed - Reason: Worsening of condition Followup: dr5 - With: Private Physician - When: 7 - 10 days - Reason: Staple/Suture removal Discharge Instructions: - Discharge Summary Sheet dr5 - Laceration Care, Adult dr5 Forms: - Medication Reconciliation Form dr5 - Antibiotic Education dr5 - Patient Portal Instructions dr5 - Leadership Thank You Letter dr5 Prescriptions: - Cephalexin 500 mg Oral capsule - take 1 capsule ORAL route every 12 hours for 7 days; 14 capsule; Refills: 0, dr5 Product Selection Permitted Signatures: Siri Menjivar, RN RN Bettina Jones RN RN ss Sameer Ellis, TIE WORKER-C TIE WORKER-Cdr5
--- NOTE | 2024-12-31 15:52 | ER ---
Nurse's Notes [facility] Name: You Starks Age: 39 yrs Sex: Male : 1985 Arrival Date: 12/31/2024 Time: 15:00 Bed 4 Private MD: Diagnosis: Laceration without foreign body of left ring finger without damage to nail Presentation: 12/31 15:07 Chief complaint: Patient states: Laceration to L 4th finger that occurred by pressure ss washer just prior to arrival. No active bleeding noted at this time. Coronavirus screen: Client denies travel out of the [place] in the last 14 days. Ebola Screen: Patient denies exposure to infectious person. Patient denies travel to an Ebola-affected area in the 21 days before illness onset. Initial Sepsis Screen: Does the patient meet any 2 criteria? No. Patient's initial sepsis screen is negative. Does the patient have a suspected source of infection? No. Patient's initial sepsis screen is negative. Risk Assessment: Do you want to hurt yourself or someone else? Patient reports no desire to harm self or others. Onset of symptoms was December 31, 2024. 15:07 Method Of Arrival: Ambulatory ss 15:07 Acuity: SHAMEKA 3 ss Triage Assessment: 15:10 General: Appears uncomfortable, Behavior is cooperative. Pain: Complains of pain in ss palmar aspect of middle phalanx of left ring finger Pain currently is 8 out of 10 on a pain scale. Quality of pain is described as aching, tender, Is continuous. Respiratory: Airway is patent Respiratory effort is even, unlabored, Respiratory pattern is regular, symmetrical. Derm: Skin is intact, is healthy with good turgor, Skin is pink, warm \T\ dry. normal. Musculoskeletal: Circulation, motion, and sensation intact. Range of motion: intact in all extremities, Swelling absent. Historical: - Allergies: 15:10 No Known Allergies; ss - PMHx: 15:10 depressive disorder; Hypertensive disorder; ss - PSHx: 15:10 gastric sleeve; ss - Immunization history:: Last tetanus immunization: unknown. - Infectious Disease History:: Denies. - Social history:: Smoking status: unknown. Screenin:20 [facility] ED Fall Risk Assessment (Adult) History of falling in the last 3 months, iw including since admission No falls in past 3 months (0 pts) Confusion or Disorientation No (0 pts) Intoxicated or Sedated Yes (3 pts) Impaired Gait No (0 pts) Mobility Assist Device Used No (0 pt) Altered Elimination No (0 pt) Score/Fall Risk Level 0 - 2 = Low Risk Oriented to surroundings, Maintained a safe environment. Abuse screen: Denies threats or abuse. Nutritional screening: No deficits noted. Tuberculosis screening: No symptoms or risk factors identified. Assessment: 15:19 General: Appears uncomfortable, Behavior is cooperative. Pain: Complains of pain in iw left hand and palmar aspect of middle phalanx of left ring finger Pain currently is 10 out of 10 on a pain scale. Neuro: Level of Consciousness is awake, alert, obeys commands, Oriented to person, place, time, situation, Moves all extremities. Cardiovascular: Respiratory: Respiratory effort is even, unlabored, Respiratory pattern is regular, symmetrical. GI: Abdomen is non-distended. Derm: Injury Description: Laceration sustained to palmar aspect of middle phalanx of left ring finger is full thickness, 0.5 to 2.5 cm long, was sustained 30-60 minutes ago. a small amount of bleeding noted at this time. Vital Signs: 15:06 BP 177 / 114; Pulse 90; Resp 16; Temp 98.3(TE); Pulse Ox 98% on R/A; Weight 82.55 kg; ss Height 5 ft. 11 in. ; Pain 8/10; 15:20 BP 159 / 108; Pulse 89; Resp 16; Pulse Ox 96% on R/A; iw 15:06 Body Mass Index 25.38 (82.55 kg, 180.34 cm) ss 15:06 Pain Scale: Adult ED Course: 15:01 Patient arrived in ED. ts1 15:06 Sameer Ellis FNP-C is PHCP. dr5 15:06 Trip Pichardo MD is Attending Physician. dr5 15:06 Arm band placed on right wrist. ss 15:10 Triage completed. ss 15:19 Siri Menjivar, RN is Primary Nurse. iw 16:19 Assist provider with laceration repair on palmar aspect of middle phalanx of left ring iw finger that was between 2.6 to 7.5 cm using sutures. Set up tray. Performed by Sameer KAPLAN Dressed with 4X4s, Patient tolerated well. Patient did not have IV access during this emergency room visit. Administered Medications: 15:18 Drug: Boostrix Tdap IM 0.5 ml IM once; as a single dose Route: IM; Site: right deltoid; iw 15:25 Follow up: Response: No adverse reaction iw 15:50 Drug: Lidocaine Infiltration (1 %) 20 ml 20 ml Infiltration once; to bedside Volume: 20 iw ml; Route: Infiltration; Medication: 15:20 Vaccine Information Statement (VIS) provided today. Questions and/or concerns iw addressed. VIS edition date: June 07, 2021. Outcome: 15:51 Discharge ordered by MD. dr5 16:20 Discharged to home ambulatory, with family, iw 16:20 Condition: good 16:20 Discharge instructions given to patient, Instructed on discharge instructions, follow up and referral plans. medication usage, Demonstrated understanding of instructions, follow-up care, medications, Prescriptions given X 1, 16:20 Patient left the ED. iw Signatures: Siri Menjivar RN RN iw Bettina Jones RN RN ss Simpson, Tanya, PAS PAS ts1 Sameer Ellis, FOOD DEHYDRATOR OPERATOR-C FOOD DEHYDRATOR OPERATOR-Cdr5
[2024-12-31 16:42] VITALS: TEMP 98.3
[2024-12-31 16:44] VITALS: BP 159/108; O2SAT 96
== END 2024-12-31 16:20 | disposition home or self-care (01) ==
LOC: ER 15:00
DX: S61.215A Laceration without foreign body of left ring finger without damage to nail, initial encounter (principal)
CPT/HCPCS: 12002; 96372; 99284; J2003